=== PATIENT | male | born 1980 | race Caucasian/White ===

== ENCOUNTER 2018-07-11 08:16 | Emergency (ER) | payer OTHER ==
--- NOTE | 2018-07-11 09:44 | ER Document Report ---
ED General - General Chief Complaint: Foot Pain Stated Complaint: RIGHT FOOT AND CALF SWELLING Time Seen by Provider: 07/11/18 08:47 Primary Care Provider: [facility] [Provider Group] - Follow up as needed TRAVEL OUTSIDE OF THE [place] IN LAST 30 DAYS: No - HPI Notes: Patient is a 38-year-old male with no significant past medical history who presents emergency department complaining of intermittent right lower extremity swelling near his ankle and foot over the past several months, but increased over the past 2 weeks. Patient states that at times he will wake up in his leg is swollen. Patient states that he does have occasional pain to the medial anterior calf/leg, but currently does not have significant swelling or pain today. He is unaware of any injury. Patient states that he does exercise often. No other concerns or complaints. Denies any prolonged immobilization, distance travel, recent surgery/trauma, personal cancer history, hormone use, smoking, or previous DVT/PE. Denies any headache, fever, URI, sore throat, chest pain, palpitations, syncope, cough, shortness of breath, wheeze, dyspnea, abdominal pain, nausea/vomiting/diarrhea, urinary retention, dysuria, hematuria, or rash. - Related Data Allergies/Adverse Reactions: No Known Allergies Allergy (Verified 07/11/18 08:20) Past Medical History - Social History Smoking Status: Never Smoker Chew tobacco use (# tins/day): Yes Frequency of alcohol use: None Drug Abuse: None Family History: Reviewed & Not Pertinent Patient has suicidal ideation: No Patient has homicidal ideation: No Renal/ Medical History: Denies: Hx Peritoneal Dialysis Psychiatric Medical History: Reports: Hx Depression, Hx Post Traumatic Stress Disorder - Immunizations Hx Diphtheria, Pertussis, Tetanus Vaccination: Yes Review of Systems - Review of Systems -: Yes All other systems reviewed and negative Physical Exam - Vital signs Vitals: Temp Pulse Resp BP Pulse Ox 97.5 F 52 L 20 128/80 H 100 07/11/18 08:26 07/11/18 08:26 07/11/18 08:26 07/11/18 08:26 07/11/18 08:26 - Notes Notes: PHYSICAL EXAMINATION: GENERAL: Well-appearing, well-nourished and in no acute distress. LUNGS: Breath sounds clear to auscultation bilaterally and equal. No wheezes rales or rhonchi. HEART: Regular rate and rhythm without murmurs, rubs, gallops. ABDOMEN: Soft, nontender, nondistended abdomen. No guarding, no rebound. Normal bowel sounds present. Musculoskeletal: Rt LE: FROM to passive/active. Strength 5+/5. Elizabeth neg. No asymmetry to LE's. Nontender to palpation. Compartments soft. No foot drop. There is no ecchymosis, deformity, erythema, or warmth/swelling. Extremities: No cyanosis, clubbing, or edema b/l. Peripheral pulses 2+. Capillary refill less than 3 seconds. NEUROLOGICAL: Normal speech, normal gait. PSYCH: Normal mood, normal affect. SKIN: Warm, Dry, normal turgor, no rashes or lesions noted. Course - Re-evaluation Re-evalutation: 07/11/18 Patient is an afebrile, well-hydrated, 38-year-old male who presents emergency department with intermittent swelling to the right lower extremity, unspecified. Vitals are acceptable without significant tachycardia, tachypnea, or hypoxia. PE is otherwise unremarkable for any neurovascular compromise, obvious tendon/leg rupture, obvious fracture/dislocation, septic joint. There is no swelling noted today and no tenderness on exam. Venous Doppler was negative. Patient has otherwise low DVT risk factors. He is nontoxic-appearing and tolerating p.o. without difficulty. No further labs or imaging warranted at this time. Low suspicion for any DVT, compartment syndrome, fracture, dislocation, septic joint, CHF, PE, pneumothorax, pericarditis, dissection, respiratory compromise, severe dehydration, sepsis, meningitis, or other systemic emergent condition at this time. Patient is aware that this condition can change from initial presentation and he needs to monitor symptoms closely and seek medical attention for any acute changes. Recommend conservative measures for symptoms. Recheck with your PCM in 3-5 days. Return to the ED with any worsening/concerning symptoms otherwise as reviewed in discharge. Patient is in agreement. - Vital Signs Vital signs: Temp Pulse Resp BP Pulse Ox 97.5 F 52 L 20 128/80 H 100 07/11/18 08:26 07/11/18 08:26 07/11/18 08:26 07/11/18 08:26 07/11/18 08:26 Discharge - Discharge Clinical Impression: Pain of right lower extremity Condition: Stable Disposition: HOME, SELF-CARE Additional Instructions: Rest, Ice, Compression, Elevation Tylenol/ibuprofen as needed Light stretches daily Strength exercises as able Moist heat and massage may help F/u with your PCP in 3-5 days for a recheck Consider consult(s) with Orthopedics/physical therapy for ongoing/worsening symptoms Return to the ED with any worsening symptoms and/or development of fever, headache, chest pain, palpitations, syncope, shortness of breath, trouble breathing, abdominal pain, n/v/d, muscle weakness/paralysis, numbness/tingling, swelling, redness, or other worsening symptoms that are concerning to you. Forms: Elevated Blood Pressure Referrals: [facility] [Provider Group] - Follow up as needed
[2018-07-11 10:31] VITALS: BP 133/84
--- NOTE | 2018-07-11 10:55 | RADIOLOGY REPORT (SQ) ---
EXAM DESCRIPTION: VENOUS UNILATERAL LOWER COMPLETED DATE/TIME: 07/11/2018 10:41 am REASON FOR STUDY: Rt LE intermittent swelling/pain COMPARISON: None. TECHNIQUE: Dynamic and static haile scale and color images acquired of the right leg venous system. S elected spectral images acquired with additional compression and augmentation maneuvers. The contrala teral common femoral vein and saphenofemoral junction were also imaged. Images stored on PACS. LIMITATIONS: None. FINDINGS: COMMON FEMORAL: Normal phasicity, compression and augmentation. No visualized echogenic ma terial on haile scale. No defects on color images. FEMORAL: Normal compression and augmentation. No visualized echogenic material on haile scale. No defe cts on color images. POPLITEAL: Normal compression, augmentation. No visualized echogenic material on haile scale. No defec ts on color images. CALF VESSELS: Normal compression, augmentation. No visualized echogenic material on haile scale. No de fects on color images. GSV and SSV: Normal compression, augmentation. No visualized echogenic material on haile scale. No def ects on color images. ANY DEEP VENOUS INSUFFICIENCY: Not evaluated. ANY EVIDENCE OF POPLITEAL CYST: No. OTHER: No other significant finding. CONTRALATERAL COMMON FEMORAL VEIN AND SAPHENOFEMORAL JUNCTION: Normal phasicity, compression and augmentation. No visualized echogenic material on haile scale. No de fects on color images. IMPRESSION: 1. NO EVIDENCE OF DVT OR SVT IN THE RIGHT LEG. TECHNICAL DOCUMENTATION: JOB ID: [id number] [employer]- All Rights Reserved Reading location - IP/workstation name: [email or web address]
== END 2018-07-11 10:31 | disposition home or self-care (01) ==
LOC: ER 08:16
DX: M79.604 Pain in right leg (principal); M79.671 Pain in right foot; M79.89 Other specified soft tissue disorders
CPT/HCPCS: 93971; 99283

== ENCOUNTER 2019-01-19 13:08 | Emergency (ER) | payer OTHER ==
[2019-01-19 13:43] LABS: APPEARANCE,URINE SLIGHTLY-CLOUDY; BILIRUBIN,URINE NEGATIVE (NEGATIVE); COLOR,URINE YELLOW; GLUCOSE, URINE NEGATIVE (NEGATIVE); KETONES,URINE NEGATIVE (NEGATIVE); LEUKOCYTE ESTERASE,URINE NEGATIVE (NEGATIVE); NITRITE,URINE NEGATIVE (NEGATIVE); PROTEIN,URINE NEGATIVE (NEGATIVE); URINE SPECIFIC GRAVITY 1.009; UROBILINOGEN,URINE NEGATIVE mg/dL (<2.0)
[2019-01-19] MEDS ORDERED: ONDANSETRON 4 MG TAB.RAPDIS PO ONE (14:17)
[2019-01-19] MEDS ORDERED: KETOROLAC TROMETHAMINE 60 MG/2 ML SDV IM ONE (14:17)
--- NOTE | 2019-01-19 14:18 | ER Document Report ---
ED Medical Screen (RME) - General Chief Complaint: Flank Pain Stated Complaint: FLANK PAIN Time Seen by Provider: 01/19/19 14:14 Mode of Arrival: Ambulatory Information source: Patient Notes: 38-year-old male presented to ED for complaint of bilateral flank pain with a history of kidney stones. He states he has not had a CAT scan since about or . He states he did have some pain down his left thigh this morning. No pain with urination. He did a urine before I saw him he does have blood in the urine so I will order the CAT scan. I have greeted and performed a rapid initial assessment of this patient. A comprehensive ED assessment and evaluation of the patient, analysis of test results and completion of medical decision making process will be conducted by an additional ED providers. TRAVEL OUTSIDE OF THE [place] IN LAST 30 DAYS: No - Related Data Allergies/Adverse Reactions: No Known Allergies Allergy (Verified 01/19/19 14:14) Past Medical History Renal/ Medical History: Denies: Hx Peritoneal Dialysis Psychiatric Medical History: Reports: Hx Depression, Hx Post Traumatic Stress Disorder - Immunizations Hx Diphtheria, Pertussis, Tetanus Vaccination: Yes Physical Exam - Vital signs Vitals: Temp Pulse Resp BP Pulse Ox 97.5 F 61 18 139/70 H 96 01/19/19 13:16 01/19/19 13:16 01/19/19 13:16 01/19/19 13:16 01/19/19 13:16 Course - Vital Signs Vital signs: Temp Pulse Resp BP Pulse Ox 97.5 F 61 18 139/70 H 96 01/19/19 13:16 01/19/19 13:16 01/19/19 13:16 01/19/19 13:16 01/19/19 13:16 - Laboratory Laboratory results interpreted by me: 01/19/19 13:14 Urine Blood LARGE H
--- NOTE | 2019-01-19 19:10 | ER Document Report ---
HPI - HPI Time Seen by Provider: 01/19/19 14:14 Pain Level: 3 Notes: Patient is a 38-year-old male with past medical history of kidney stones presenting to the emergency department with onset of left flank pain at approximately 3:00 this morning. Patient denies any urinary frequency, dysuria or fever. Patient reports mild nausea but denies any vomiting. Patient reports he has not had a CT for several years. - GASTROINTESTINAL Gastrointestinal: REPORTS: Abdominal Pain - REPRODUCTIVE Reproductive: DENIES: : Past Medical History - General Information source: Patient - Social History Smoking Status: Never Smoker Chew tobacco use (# tins/day): No Frequency of alcohol use: None Drug Abuse: None Family History: Reviewed & Not Pertinent Patient has suicidal ideation: No Patient has homicidal ideation: No Renal/ Medical History: Denies: Hx Peritoneal Dialysis Psychiatric Medical History: Reports: Hx Depression - ptsd, Hx Post Traumatic Stress Disorder - Immunizations Hx Diphtheria, Pertussis, Tetanus Vaccination: Yes Vertical Provider Document - CONSTITUTIONAL Notes: PHYSICAL EXAMINATION: GENERAL: Well-appearing, well-nourished and in no acute distress. HEAD: Atraumatic, normocephalic. EYES: Pupils equal round and reactive to light, extraocular movements intact, sclera anicteric, conjunctiva are normal. ENT: Nares patent, oropharynx clear without exudates. Moist mucous membranes. NECK: Normal range of motion, supple without lymphadenopathy LUNGS: Breath sounds clear to auscultation bilaterally and equal. No wheezes rales or rhonchi. HEART: Regular rate and rhythm without murmurs ABDOMEN: Soft, nontender, nondistended abdomen. No guarding, no rebound. No masses appreciated. Genitourinary: No CVA tenderness bilaterally. Musculoskeletal: Normal range of motion, no pitting or edema. No cyanosis. NEUROLOGICAL: Cranial nerves grossly intact. Normal speech, normal gait. Normal sensory, motor exams PSYCH: Normal mood, normal affect. SKIN: Warm, Dry, normal turgor, no rashes or lesions noted. - INFECTION CONTROL TRAVEL OUTSIDE OF THE [place] IN LAST 30 DAYS: No Course - Re-evaluation Re-evalutation: Laboratory 01/19/19 13:14 Urine Color YELLOW Urine Appearance SLIGHTLY-CLOUDY Urine pH 6.0 Ur Specific [place] 1.009 Urine Protein NEGATIVE Urine Glucose (UA) NEGATIVE Urine Ketones NEGATIVE Urine Blood LARGE H Urine Nitrite NEGATIVE Urine Bilirubin NEGATIVE Urine Urobilinogen NEGATIVE Ur Leukocyte Esterase NEGATIVE Urine WBC (Auto) 9 Urine RBC (Auto) 104 Urine Bacteria (Auto) TRACE Urine Ascorbic Acid NEGATIVE CT shows a 0.3 cm ureteral stone in the left UVJ with mild hydronephrosis, no hydroureter or perinephric stranding. Unfortunately CTs are not crossing over into the system at this time. Urine shows large blood and 9 white blood cells, urine culture pending. Patient reports he is feeling improved after receiving the Toradol by the triage provider. Will discharge patient home with prescription for Flomax, Percocet and Zofran. Patient will be instructed to take ibuprofen every 6 hours. Patient was given contact information for urology. Patient given strict ED return precautions, patient verbalized understanding and agreement with plan. - Vital Signs Vital signs: Temp Pulse Resp BP Pulse Ox 97.8 F 53 L 18 130/80 H 95 01/19/19 17:42 01/19/19 17:42 01/19/19 17:42 01/19/19 17:42 01/19/19 17:42 - Laboratory Laboratory results interpreted by me: 01/19/19 13:14 Urine Blood LARGE H Discharge - Discharge Clinical Impression: Kidney stone Condition: Stable Disposition: HOME, SELF-CARE Additional Instructions: Your symptoms should improve over the course of the next one week. If you continue to have pain for greater than one week or your pain is not controlled with the pain medications that you have been sent home with you need to return to the emergency department. Please also return if you develop fever, persistent vomiting, or any other symptoms that are concerning to you. You should take ibuprofen 600 mg every 6 hours and use the pain medication as prescribed only for pain not controlled by ibuprofen. You are also been sent home with a medication called Flomax to help pass the stone. You've been given Zofran to assist with nausea. Please follow-up with urology in the next 2-3 days. Prescriptions: Tamsulosin HCl [Flomax] 0.4 mg PO DAILY #7 cap.er.24h Oxycodone HCl/Acetaminophen [Percocet 5-325 mg Tablet] 1 tab PO Q4H PRN #12 tablet PRN Reason: Ondansetron [Zofran Odt 4 mg Tablet] 1 - 2 tab PO Q4H PRN #15 tab.rapdis PRN Reason: For Nausea/Vomiting Referrals: MIGUELITO SCHREIBER MD [NO LOCAL MD] - Follow up as needed
[2019-01-19 19:30] VITALS: BP 139/85
== END 2019-01-19 19:30 | disposition home or self-care (01) ==
LOC: ER 13:08
DX: N20.0 Calculus of kidney (principal); R10.9 Unspecified abdominal pain
CPT/HCPCS: 99284; 96372; 81001; 74176; J1885; S0119